=== PATIENT | male | born 1995 | race Caucasian/White ===

== ENCOUNTER 2017-06-04 19:56 | Inpatient (IN) | payer OTHER ==
[2017-06-04 20:03] VITALS: BMI 44.3
[2017-06-04] MEDS ORDERED: SODIUM CHLORIDE 1,000 ML IV STA (21:33)
[2017-06-04] MEDS ORDERED: KETOROLAC TROMETHAMINE 30 MG/1 ML VIAL IVPUSH ONE (21:33)
--- NOTE | 2017-06-04 21:55 | PDOC ---
History of Present Illness - General Chief Complaint: Pain, Acute Stated Complaint: SENT BY PCP Time Seen by Provider: 06/04/17 21:24 History Source: Patient Exam Limitations: No Limitations - History of Present Illness Initial Comments: 06/04/17 21:49 Patient is a 22M with no prior medical history here today due to kidney stones. He had kidney stones for about a month and being followed by Dr James Lewis ([phone]), who told him to present to the emergency department [facility] for surgery tomorrow. Per the patient, the stones are located in the left kidney, and are causing a blockage. He is complaining of suprapubic pain and left CVA tenderness. He denies nausea, vomiting, fevers and chills. Past History - Past Medical History Allergies/Adverse Reactions: Allergies Allergy/AdvReac Type Severity Reaction Status Date / Time No Known Allergies Allergy Verified 06/04/17 20:02 Home Medications: Ambulatory Orders NK [No Known Home Medication] 06/04/17 Other medical history: denies - Psycho/Social/Smoking Cessation Hx Suicidal Ideation: No Smoking History: Never smoked Review of Systems - Review of Systems Comments:: 06/04/17 21:55 GENERAL/CONSTITUTIONAL: No fever or chills. No weakness. HEAD, EYES, EARS, NOSE AND THROAT: No change in vision. No ear pain or discharge. No sore throat. CARDIOVASCULAR: No chest pain or shortness of breath RESPIRATORY: No cough, wheezing GASTROINTESTINAL: No nausea, vomiting, diarrhea or constipation. GENITOURINARY: Some pain with urination, frequency, or change in urination. MUSCULOSKELETAL: No joint or muscle swelling or pain. No neck or back pain. SKIN: No rash NEUROLOGIC: No headache, loss of consciousness, or change in strength/sensation. ALLERGIC/IMMUNOLOGIC: No hives or skin allergy. *Physical Exam - Vital Signs Last Vital Signs Temp Pulse Resp BP Pulse Ox 98.6 F 111 H 20 140/83 100 06/04/17 20:00 06/04/17 20:00 06/04/17 20:00 06/04/17 20:00 06/04/17 20:00 - Physical Exam Comments: 06/04/17 21:57 GENERAL: Awake, alert, and fully oriented, in mild acute distress HEAD: No signs of trauma, normocephalic, atraumatic EYES: PERRLA, EOMI, sclera anicteric, conjunctiva clear ENT: Auricles normal inspection, hearing grossly normal, nares patent. Moist mucosa LUNGS: No distress, speaks full sentences, clear to auscultation bilaterally HEART: Regular rate and rhythm, normal S1 and S2, no murmurs, rubs or gallops, peripheral pulses normal and equal bilaterally. ABDOMEN: Tender to palpation in suprapubic region and L CVA. normoactive bowel sounds. No guarding, no rebound. No masses EXTREMITIES: Normal inspection, Normal range of motion, no edema. No clubbing or cyanosis. NEUROLOGICAL: Cranial nerves II through XII grossly intact. Normal speech, no focal sensorimotor deficits ED Treatment Course - LABORATORY CBC & Chemistry Diagram: 06/04/17 22:00 06/04/17 22:00 Medical Decision Making - Medical Decision Making 06/04/17 21:59 Patient is a 22M with no significant medical history here today due to his urologist sending him in for surgery for kidney stones. Will treat with fluids and toradol. Will evaluate with CBC, CMP, Coags, Type and Screen, UA and Lactic Acid. Dr. Lewis contacted at 21:30, pending call back. 06/04/17 22:[address] Lewis. Patient has kidney stones with hydronephrosis, otherwise normal. Wants to admit to medicine and have patient NPO after midnight. 06/04/17 23:[address] Brownlee who accepted the admission. NPO after midnight. D5NS at 83ml/hr. *DC/Admit/Observation/Transfer Diagnosis at time of Disposition: Calculus of kidney - Discharge Dispostion Condition at time of disposition: Stable Admit: Yes - Attestations Physician Attestion: 06/04/17 23:32 I, Dr. Kareem Abernathy, attest that this document has been prepared under my direction and personally reviewed by me in its entirety. I further attest, that it accurately reflects all work, treatment, procedures and medical decision -making performed by me.
[2017-06-04] MEDS ORDERED: KETOROLAC TROMETHAMINE 30 MG/1 ML VIAL ONE (21:59)
[2017-06-04 22:21] LABS: BASOPHIL 0.6 % (0-2.0); EOSINOPHIL 1.3 % (0-4.5); MCH 30.6 pg (25.7-33.7); MCHC 34.1 g/dl (32.0-35.9); MEAN CELL VOLUME 89.8 fl (80-96); MEAN PLT VOLUME 6.8 fl (7.5-11.1); PLATELET COUNT 311 K/MM3 (134-434); RDW 12.3 % (11.9-15.9); WHITE BLOOD COUNT 7.4 K/mm3 (4.0-10.0)
[2017-06-04 22:33] LABS: INR 1.16 (0.82-1.09); PROTHROMBIN TIME (PATIENT) 12.8 SEC (9.98-11.88)
[2017-06-04 22:34] LABS: URINE APPEARANCE SLCLOUDY; URINE BILIRUBIN NEGATIVE (NEGATIVE); URINE BLOOD 3+ (NEGATIVE); URINE COLOR YELLOW; URINE GLUCOSE (UA) NEGATIVE (NEGATIVE); URINE KETONE TRACE (NEGATIVE); URINE LEUK ESTERASE NEGATIVE (NEGATIVE); URINE NITRITE NEGATIVE (NEGATIVE); URINE PROTEIN 1+ (NEGATIVE); URINE UROBILINOGEN NEGATIVE mg/dL (0.2-1.0)
[2017-06-04 22:41] LABS: URINE HYALINE CAST 25 /lpf; URINE MUCUS MANY; URINE RBC 1153 /hpf (0-3); URINE WBC 9 /hpf (3-5)
[2017-06-04 22:53] LABS: ALBUMIN 4.7 g/dl (3.4-5.0); ANION GAP 6 (8-16); BILIRUBIN,TOTAL 0.6 mg/dL (0.2-1.0); CALCIUM 9.4 mg/dL (8.5-10.1); CO2 29 mmol/L (21-32); CREATININE 1.1 mg/dL (0.7-1.3); GLUCOSE,RANDOM 94 mg/dL (74-106); SGOT/AST 12 U/L (15-37); SGPT/ALT 20 U/L (12-78); TOT PROT 7.9 g/dl (6.4-8.2)
[2017-06-04 22:54] LABS: ALK PHOS 68 U/L (45-117)
[2017-06-04] MEDS ORDERED: DEXTROSE 5%-NORMAL SALINE 1,000 ML IV SCH (23:30)
--- NOTE | 2017-06-04 23:40 | PDOC ---
Attending Attestation - Resident Resident Name: IlirKareem valero - HPI HPI: 06/04/17 23:39 22-year-old male referred to the emergency department for admission because of hydronephrosis due to kidney stones. He was sent in by his urologist. Dr. Annabel Brewer for admission by his primary physician. Dr Brownlee - Physicial Exam PE: 06/04/17 23:40 wmwd 22 yo male p/w left cva tenderness and suprapubic pain lungs cta b/l cvr [id number] abd soft,nontender neuro no gross neuro deficits - Medical Decision Making 06/04/17 23:42 Dav Brewer and Kem have been called and pt admitted to med/surg
[2017-06-05] MEDS ORDERED: LEVOFLOXACIN 500 MG IVPB 100 ML IVPB ONE (06:55)
[2017-06-05] MEDS ORDERED: MIDAZOLAM HCL 2 MG/2 ML SINGLE DOSE VIAL ONE (11:15)
[2017-06-05] MEDS ORDERED: SUCCINYLCHOLINE CHLORIDE 200 MG/10 ML VIAL ONE (11:16)
[2017-06-05] MEDS ORDERED: PROPOFOL 20 ML ONE ×2 (11:16)
[2017-06-05] MEDS ORDERED: LEVOFLOXACIN 500 MG PREMIX BAG IVPB ONE (11:22)
[2017-06-05] MEDS ORDERED: ePHEDrine SULFATE 50 MG/1 ML AMPULE ONE (11:41)
[2017-06-05] MEDS ORDERED: ONDANSETRON 4 MG/2 ML VIAL IVPUSH PRN (12:28)
[2017-06-05] MEDS ORDERED: oxyCODONE HCL 5 MG TABLET PO PRN ×2 (12:28)
[2017-06-05] MEDS ORDERED: LACTATED RINGERS SOLUTION 1,000 ML IV SCH (12:30)
[2017-06-05 12:33] VITALS: TEMP 98.4
--- NOTE | 2017-06-05 13:01 | CONSULT ---
Consult - text type - Consultation Consultation Note: CC: left renal colic hpi: patient with one month history of left renal colic with obstructing left distal ureteral stone. Patient has not passed stone by history. Patient with episodic nausea and vomiting. Describes chills. PE Afeb abd-left CVAT present imp left hydronephrosis obstructing left ureteral stone plan patient taken emergently to the OR for ureteroscopic stone basketing discussed with patient and family and ER staff on 06/04 and06/05 for thiry minutes
--- NOTE | 2017-06-05 13:06 | OP ---
Operative Note - Note: Operative Date: 06/05/17 Pre-Operative Diagnosis: left hydronephrosis secondary to left UVJ stone Operation: cystoscopy/left retrograde pyelogram/left ureteroscopic stone manipulaton and stent placement Findings: impacted 6+mm left ureteropelvic junction stone with grade 4/5 hydroureteronephrosis Post-Operative Diagnosis: Same as Pre-op Surgeon: James Lewis Anesthesia: General Drains & Tubes with Location: 6 fr/24 cm left ureteral stent
[2017-06-05 14:17] VITALS: PULSE 96
[2017-06-05] MEDS ORDERED: oxyCODONE HCL 5 MG TABLET ONE (14:37)
--- NOTE | 2017-06-05 15:42 | HP ---
Admitting History and Physical - Primary Care Physician PCP: Leti Brownlee - Admission Chief Complaint: FLANK PAIN HYDRONEPHROSIS History of Present Illness: SENT FROM FOR LITHOTRYPSY POSSIBLE CYSTOSCOPY FOR HYDRONEPHROSIS History Source: Patient, Medical Record - Smoking History Smoking history: Never smoked Home Medications - Allergies Allergies/Adverse Reactions: Allergies Allergy/AdvReac Type Severity Reaction Status Date / Time No Known Allergies Allergy Verified 06/04/17 20:02 - Home Medications Home Medications: Ambulatory Orders Levofloxacin [Levaquin] 0 mg PO DAILY 06/05/17 Review of Systems - Review of Systems Constitutional: reports: Other Eyes: reports: No Symptoms HENT: reports: No Symptoms Neck: reports: No Symptoms Cardiovascular: reports: No Symptoms Respiratory: reports: No Symptoms Gastrointestinal: reports: Abdominal Pain Genitourinary: reports: Flank Pain, Other Musculoskeletal: reports: Back Pain Integumentary: reports: No Symptoms Neurological: reports: No Symptoms Endocrine: reports: No Symptoms Hematology/Lymphatic: reports: No Symptoms Physical Examination Vital Signs: Vital Signs Temperature 98.4 F 06/05/17 12:58 Pulse Rate 96 H 06/05/17 13:05 Respiratory Rate 18 06/05/17 13:05 Blood Pressure 148/77 06/05/17 13:05 O2 Sat by Pulse Oximetry (%) 99 06/05/17 12:45 Constitutional: Yes: Mild Distress Eyes: Yes: WNL HENT: Yes: WNL Neck: Yes: WNL Cardiovascular: Yes: WNL Respiratory: Yes: WNL Gastrointestinal: Yes: Tenderness Renal/: Yes: CVA Tenderness - Left, CVA Tenderness - Right Musculoskeletal: Yes: Back Pain Extremities: Yes: WNL Edema: No Peripheral Pulses WNL: Yes Integumentary: Yes: WNL Wound/Incision: Yes: Clean/Dry Neurological: Yes: WNL ...Motor Strength: WNL Psychiatric: Yes: WNL Problem List - Problems (1) Kidney stone Code(s): N20.0 - CALCULUS OF KIDNEY Assessment/Plan WORKUP ESWL VS CYSTOSCOPY IV ABX PAIN CONTROL IVF
--- NOTE | 2017-06-05 15:44 | DS ---
Physical Examination Vital Signs: Vital Signs Temperature 98.4 F 06/05/17 12:58 Pulse Rate 96 H 06/05/17 13:05 Respiratory Rate 18 06/05/17 13:05 Blood Pressure 148/77 06/05/17 13:05 O2 Sat by Pulse Oximetry (%) 99 06/05/17 12:45 Constitutional: Yes: Mild Distress Eyes: Yes: WNL HENT: Yes: WNL Neck: Yes: WNL Cardiovascular: Yes: WNL Respiratory: Yes: WNL Gastrointestinal: Yes: Tenderness Renal/: Yes: CVA Tenderness - Left Musculoskeletal: Yes: Back Pain Extremities: Yes: WNL Edema: No Peripheral Pulses WNL: Yes Integumentary: Yes: WNL Wound/Incision: Yes: Clean/Dry Neurological: Yes: WNL ...Motor Strength: WNL Psychiatric: Yes: WNL Discharge Summary Reason For Visit: CHOLECYTITIS Current Active Problems Kidney stone (Acute) Procedures: Principal: CYSTOSCOPY LEFT RENAL URETRAL STENT Hospital Course: ADMITTED FOR HYDRONEPHROSIS LEFT URETRAL STENTING DONE IV ABX GIVEN, F/U WITH AND PMD OUTPATIENT Condition: Good - Instructions Diet, Activity, Other Instructions: increase fluids tylenol/advil/motrin for pain follow-up on at 4:00 pm Referrals: Leti Brownlee MD [Primary Care Provider] - Disposition: HOME - Home Medications Comprehensive Discharge Medication List: Ambulatory Orders Levofloxacin [Levaquin] 0 mg PO DAILY 06/05/17
[2017-06-05 15:56] VITALS: BP 145/86
--- NOTE | 2017-06-06 08:42 | OP ---
DATE OF OPERATION: 06/05/2017 PREOPERATIVE DIAGNOSIS: High-grade left ureteral obstruction secondary to left ureteropelvic junction stone. POSTOPERATIVE DIAGNOSIS: Impacted left distal ureteropelvic junction stone with grade 4/5 hydroureteronephrosis. PROCEDURE: Cystoscopy, left retrograde pyelogram, left ureteroscopic stone manipulation, and left ureteral stent placement. ATTENDING PHYSICIAN: Ottoniel Houston MD ANESTHESIA: General. DESCRIPTION OF OPERATION: The patient was brought in the operating room, placed in a supine position on the operating room table. General anesthesia was administered. The patient was given Levaquin preoperatively for surgical prophylaxis. At this point, the patient was placed in a dorsal lithotomy position and prepped and draped in the usual sterile manner. The patient has a 1-month history of a left hydroureteronephrosis with intermittent nausea and vomiting. The patient continues to have symptoms and denies passing a stone. The patient is at risk for significant renal impairment involving the left kidney. The patient is taken emergently to the operating room. The patient understands all risks and benefits. Cystoscopy is performed. No evidence of stone passage is noted. No stones are seen in the bladder. There is no evidence of neoplasm within the bladder. At this point, a retrograde pyelogram is performed, which shows a 6+ mm distal ureteral stone with a high-grade 4/5 hydroureteronephrosis. At this point, a wire is passed with difficulty into the proximal ureter and renal pelvis. Ureteroscopy is then performed, and an impacted stone is seen. Manipulation is performed with the use of water pressure to visualize the stone. The stone is mobilized and migrates proximally into the kidney. At this point, there is noted to be what appears to be dirty urine. There is also hematuria noted. Because of the poor visualization and the risk of causing a uroseptic episode, it was decided to leave the stone in the lower pole at this point. It was decided to leave a stent. A 6-Sami 24-cm stent was passed utilizing Seldinger technique. The patient tolerated the procedure very well. Disposition is to recovery room. The patient will be followed as an outpatient. OTTONIEL HOUSTON M.D. [id number]
== END 2017-06-05 15:52 | disposition home or self-care (01) | DRG 669 ==
LOC: JER 19:56 → JERBED 23:42
PROVIDERS: ADMIT Family Medicine; ATTEND Family Medicine
PROC: 0TC78ZZ Extirpation of Matter from Left Ureter, Via Natural or Artificial Opening Endoscopic (ICD-10-PCS; principal; 2017-06-05 11:30)
PROC: 0T778DZ Dilation of Left Ureter with Intraluminal Device, Via Natural or Artificial Opening Endoscopic (ICD-10-PCS; 2017-06-05 11:30)
DX: N13.2 Hydronephrosis with renal and ureteral calculous obstruction (principal)
CPT/HCPCS: 36415; 76000-TC; 80053; 81003; 81015; 83605; 85025; 85610; 86850; 86900; 86901; 94760; 99283-25

== ENCOUNTER → 2017-07-31 | Day surgery (SDC) | payer OTHER ==
[2017-07-26 14:33] VITALS: BMI 41.5
[~2017-07-31] MED LIST: LACTATED RINGERS SOLUTION 1,000 ML IV SCH; LEVOFLOXACIN 500 MG PREMIX BAG IVPB ONE; MIDAZOLAM HCL 2 MG/2 ML SINGLE DOSE VIAL ONE; ONDANSETRON 4 MG/2 ML VIAL IVPUSH PRN; PROMETHAZINE HCL 25 MG/1 ML VIAL IVPUSH PRN
[2017-07-31 13:05] VITALS: TEMP 98.1
--- NOTE | 2017-07-31 13:09 | OP ---
Operative Note - Note: Operative Date: 07/31/17 Pre-Operative Diagnosis: left renal stones Operation: left eswl Findings: two stones each measuring 3mm in lower pole of left kidney Post-Operative Diagnosis: Same as Pre-op Surgeon: James Lewis Anesthesia: General
[2017-07-31 13:51] VITALS: BP 144/84; PULSE 86
--- NOTE | 2017-08-01 11:18 | OP ---
DATE OF OPERATION: 07/31/2017 PREOPERATIVE DIAGNOSIS: Left urolithiasis. POSTOPERATIVE DIAGNOSIS: Left urolithiasis. PROCEDURE: Left extracorporeal shock wave lithotripsy. ATTENDING: James Brewer MD ANESTHESIA: General. OPERATION: The patient was brought in the operating room, placed in supine position on the operating room table. Two stones, each measuring 3 mm, were noted in the left lower pole. Lithotripsy was performed on these stones once anesthesia was administered. Excellent fragmentation of the stone was noted under real time ultrasonography and fluoroscopy, 3000 impulses at 17 joules of power were administered to the stone. The disposition of the patient was to the recovery room. Julianna [id number]
== END | disposition home or self-care (01) ==
LOC: JASU-SURG 09:55
PROVIDERS: ATTEND Urology
PROC: 0TF4XZZ Fragmentation in Left Kidney Pelvis, External Approach (ICD-10-PCS; principal; 2017-07-31 11:45)
DX: N20.0 Calculus of kidney (principal)
CPT/HCPCS: 94760